=== PATIENT | female | born 1965 | race African-American/Black ===

== ENCOUNTER 2019-02-04 11:50 | Emergency (ER) | payer BC ==
[~2019-02-04] VITALS: Ht 167.6 cm; Wt 142.0 kg
[~2019-02-04 11:50] MED LIST: AMLO10TA8 PO; CHOL500045 PO; ERGO500017 PO; GABA600T7 PO; HYDR473S51 PO; HYDROCHLOROTH12.5 MG PO; LEVO75TA5 PO; LOSA100T14 PO; MELO15TA24 PO; METF500T12 PO; NORE5TAB PO; NPH,100V5 SQ; ONDA4TAB10 PO; OXYC5CAP2 PO; PRAV80TA2 PO
--- NOTE | 2019-02-04 13:00 | NUR ---
PT HAS CO OF RIGHT LOWER LEG PAIN. PULSE 2+, NO EDEMA. VS STABLE, DENIES, SOB AND CP. NO N/V/D. MD AT BEDSIDE. NO NEEDS AT THIS TIME Addendum: 02/04/19 at 1520 by CHHAYA RIGHT LEG SLIGHTLY MORE EDEMATOUS THAN LEFT. INCREASED REDNESS OVER GOOD. PT STATES PAIN IN ANKLE
[2019-02-04 13:19] LABS: MEAN CORPUSCULAR HEMOGLOBIN 25.8 pg (27.0-34.8); MEAN CORPUSCULAR HGB CONC 31.6 g/dL (32.4-35.8); MEAN CORPUSCULAR VOLUME 81.5 fL (80-100); MEAN PLATELET VOLUME 8.7 fL (7.4-10.4); PLATELET COUNT 243 x10^3/uL (130-400); RED BLOOD COUNT 5.35 x10^6/uL (3.82-5.3); RED CELL DISTRIBUTION WIDTH 16.2 % (9.6-15.2)
[2019-02-04 13:23] LABS: INTERNATIONAL NORMALIZED RATIO 1.02 (0.93-1.1); PROTHROMBIN TIME 10.7 Seconds (9.6-11.5)
[2019-02-04 13:24] LABS: ALBUMIN 3.3 g/dL (3.4-5.0); ANION GAP 2 mmol/L (5-15); CALCIUM 8.8 mg/dL (8.5-10.1); CHLORIDE 107 mmol/L (98-107)
[2019-02-04 13:25] LABS: CREATININE 0.95 mg/dL (0.55-1.02)
[2019-02-04 13:33] LABS: BASOPHILS # (AUTO) 0.02 x10^3/uL (0-0.1); BASOPHILS % (AUTO) 1 % (0-1); EOSINOPHILS # (AUTO) 0.25 x10^3/uL (0-0.4); EOSINOPHILS % (AUTO) 5 % (1-7); LYMPHOCYTES # (AUTO) 1.19 x10^3/uL (1-3.4); LYMPHOCYTES % (AUTO) 22 % (22-44); MD SCAN; MONOCYTES # (AUTO) 0.55 x10^3/uL (0.2-0.8); MONOCYTES % (AUTO) 10 % (2-9); NEUTROPHILS % (AUTO) 62 % (42-75)
--- NOTE | 2019-02-04 14:05 | NUR ---
PT RESTING. WAITING FOR RESULTS. NO NEEDS AT THIS TIME
--- NOTE | 2019-02-04 14:47 | NUR ---
TASK RN: PT HYPOXIC PLACED ON O2 2L NC.
[2019-02-04 15:21] VITALS: BP 110/85
--- NOTE | 2019-02-04 15:22 | NUR ---
Patient/Caregiver given discharge instructions and they have confirmed that they understand the instructions. Patient ambulatory with steady gait.
[2019-02-04] MEDS ORDERED: CEPHALEXIN 500 MG CAPSULE ONE (15:24)
[2019-02-04] MEDS ORDERED: CEPHALEXIN 500 MG CAPSULE PO ONE (15:30)
--- NOTE | 2019-02-04 15:45 | NUR ---
Patient/Caregiver given discharge instructions and they have confirmed that they understand the instructions. Patient ambulatory with steady gait.
== END 2019-02-04 15:46 | disposition home or self-care (01) ==
LOC: ED 13:47
DX: L03.115 Cellulitis of right lower limb (principal); I10 Essential (primary) hypertension; E78.5 Hyperlipidemia, unspecified; E03.9 Hypothyroidism, unspecified; E78.00 Pure hypercholesterolemia, unspecified; E11.9 Type 2 diabetes mellitus without complications; Z87.891 Personal history of nicotine dependence
CPT/HCPCS: 36415; 80048; 82040; 85025; 85610; 85730; 93922; 99284

== ENCOUNTER 2019-02-17 15:56 | Emergency (ER) | payer BC ==
[~2019-02-17] VITALS: Ht 167.6 cm; Wt 148.8 kg
--- NOTE | 2019-02-17 16:47 | NUR ---
TORCH CUTTER: PT TO ROOM FROM [facility]
[2019-02-17 17:53] LABS: BASOPHILS # (AUTO) 0.04 x10^3/uL (0-0.1); BASOPHILS % (AUTO) 1 % (0-1); EOSINOPHILS # (AUTO) 0.24 x10^3/uL (0-0.4); EOSINOPHILS % (AUTO) 3 % (1-7); LYMPHOCYTES # (AUTO) 1.87 x10^3/uL (1-3.4); LYMPHOCYTES % (AUTO) 26 % (22-44); MD NO; MEAN CORPUSCULAR HEMOGLOBIN 25.9 pg (27.0-34.8); MEAN CORPUSCULAR HGB CONC 31.5 g/dL (32.4-35.8); MEAN CORPUSCULAR VOLUME 82.3 fL (80-100); MEAN PLATELET VOLUME 9.1 fL (7.4-10.4); MONOCYTES # (AUTO) 0.64 x10^3/uL (0.2-0.8); MONOCYTES % (AUTO) 9 % (2-9); NEUTROPHILS % (AUTO) 61 % (42-75); PLATELET COUNT 267 x10^3/uL (130-400); RED BLOOD COUNT 5.22 x10^6/uL (3.82-5.3); RED CELL DISTRIBUTION WIDTH 16.5 % (9.6-15.2)
[2019-02-17 17:56] LABS: ALBUMIN 3.5 g/dL (3.4-5.0); ANION GAP 4 mmol/L (5-15); CALCIUM 9.3 mg/dL (8.5-10.1); CHLORIDE 105 mmol/L (98-107); CREATININE 1.03 mg/dL (0.55-1.02)
--- NOTE | 2019-02-17 18:34 | NUR ---
PT PLACED ON 2L NC FOR SPO2 69% WHEN SLEEPING, PT STATES SHE HAS SLEEP APNEA BUT CANNOT AFFORD THE MACHINE.
[2019-02-17 19:26] VITALS: BP 146/83
== END 2019-02-17 19:58 | disposition home or self-care (01) ==
LOC: ED 18:24
DX: L03.115 Cellulitis of right lower limb (principal); I10 Essential (primary) hypertension; E11.9 Type 2 diabetes mellitus without complications; E78.00 Pure hypercholesterolemia, unspecified; E78.5 Hyperlipidemia, unspecified; E03.9 Hypothyroidism, unspecified; Z87.891 Personal history of nicotine dependence
CPT/HCPCS: 36415; 80048; 82040; 85025; 99284